=== PATIENT | male | born 1965 | race Caucasian/White ===

== ENCOUNTER 2017-01-15 13:58 | Emergency (ER) | payer OTHER ==
--- NOTE | ~2017-01-15 | CT116 ---
[facility] A Service [facility] RADIOLOGY TEXT RESULTS PATIENT: ALFA LEOS LOCATION: SED : 61 UNIT #: [id number] AGE: [address]: Iris Zepeda APRN SEX: M ORDER DR: [id number] [place] [id number] E MR#: [id number] Acc #: [id number] NAME: ALFA LEOS. : 1965 SEX: M STUDY DATE/TIME: 01/15/2017 13:58 UNIT: SED ROOM: STUDY DESCRIPTION: CT Soft Tissue Neck Wo Cont Attending Physician: Iris Zepeda A.P.R.N. Ordering Physician: Iris Zepeda A.P.R.N. Primary Care Physician: Ruy Segura M.D. MEDICAL IMAGING REPORT This report is preliminary unless electronic signature is present. EXAM Soft tissue neck CT without contrast. DATE OF EXAMINATION 01/15/2017 COMPARISON None. CLINICAL HISTORY Right face and neck swelling, right jaw swelling. TECHNIQUE This CT exam was performed with one or more of the following radiation dose reduction techniques: automatic exposure control, adjustment of mA and/or kV according to patient size, and iterative reconstruction. FINDINGS There is marked inflammatory change in the right neck soft tissues, adjacent skin thickening, and small reactive lymph nodes are seen. There is no bone erosion or destruction. There may be associated dental caries better assessed on physical exam and/or dental radiography. The bony structures of the cervical spine are normal. IMPRESSION Marked right neck soft tissue inflammatory changes. No contrast was administered because of contrast allergy, but of course this naturally diminishes the sensitivity for abscess, but no evidence is seen to suggest abscess. There are some reactive appearing lymph nodes. There may be some dental caries but there is no mandibular or maxillary bone erosion or destruction. Incidentally noted maximal diameter ascending aorta 4.0 cm. [facility] A Service of [facility] RADIOLOGY TEXT RESULTS PATIENT: ALFA LEOS LOCATION: SED : 61 UNIT #: [id number] AGE: [address]: Iris Zepeda APRN SEX: M ORDER DR: Dictated by... Mark Davies M.D. THIS IS AN ELECTRONICALLY VERIFIED REPORT Mark Davies M.D. at 01/15/2017 4:53 PM VIBHA/tmw TD: 01/15/2017 16:30 JOB #: [id number] MEDICAL IMAGING REPORT Page 1 of 1
[~2017-01-15 13:58] MED LIST: ABILIFY PO; ASPIRIN EC81 M1 PO; BENADRYL25 M1 PO; BENICAR PO; CRESTOR PO; DESYREL150 M1 PO; DIAZEPAM PO; DIVALPROEX SOD500 M1; FLUOXETINE HCL40 M1 PO; IBUPROFEN200 M1 PO; LORTAB 10/500 T1 TAB PO; NEURONTIN300 MG PO; PRINIVIL40 MG PO; TRAZODONE PO; [UNRECOGNIZED DRUG - OTHER]
[2017-01-15 14:24] LABS: BASOPHIL# 0.1 X10e3 (0-0.3); BASOPHIL% 0.6 % (0-2.5); EOSINOPHIL% 0.3 % (0.0-7.0); HEMOGLOBIN 15.2 gm/dL (13.0-16.0); LYMPHOCYTE# 1.7 X10e3 (1.0-3.5); LYMPHOCYTE% 10.8 % (17.0-45.0); MEAN CELL VOLUME 89.3 FL (83-96); MEAN CORPUSCULAR HEMOGLOBIN 30.2 PG (28-34); MEAN CORPUSCULAR HGB CONC 33.8 g/dL (30-36); MEAN PLATELET VOLUME 7.8 FL (6.5-11.5); MONOCYTE# 0.9 X10e3 (0-1.0); MONOCYTE% 5.6 % (3.0-12.0); NEUTROPHIL# 12.8 X10e3 (1.5-7.1); NEUTROPHIL% 82.7 % (40-75); PLATELET COUNT 254 X10e3 (140-420); RED BLOOD COUNT 5.04 X10e (3.90-5.60); RED CELL DISTRIBUTION WIDTH 13.1 % (11.0-15.5); WHITE BLOOD COUNT 15.4 X10e3 (4.0-10.5)
[2017-01-15 14:33] LABS: DIFF IND NO
[2017-01-15 14:42] LABS: BUN/CREATININE RATIO 12.22; CALCIUM SERUM 8.9 mg/dL (8.4-10.2); CREATININE SERUM 0.9 mg/dL (0.6-1.4); GLOM FILT RATE Estimated 97.2 mL/min (>60); POTASSIUM 4.1 mmol/L (3.5-5.1)
== END 2017-01-15 15:49 | disposition home or self-care (01) ==
LOC: SED 13:58
PROVIDERS: Nurse Practitioner
DX: K04.7 Periapical abscess without sinus (principal); I10 Essential (primary) hypertension; F17.210 Nicotine dependence, cigarettes, uncomplicated; Z91.040 Latex allergy status; Z88.8 Allergy status to other drugs, medicaments and biological substances; Z79.899 Other long term (current) drug therapy
CPT/HCPCS: 36415; 70490; 80048; 85025; 96365; 96375; 99284; J2270; J2405